=== PATIENT | female | born 1945 | race Caucasian/White ===

== ENCOUNTER 2021-02-14 10:00 | Inpatient (IN) | payer OTHER ==
[~2021-02-14] VITALS: Ht 147.3 cm; Wt 49.9 kg
[2021-02-14] MEDS ORDERED: ARIMIDEX PO (12:30)
[2021-02-14] MEDS ORDERED: BONIVA150 MG PO (12:30)
[2021-02-14] MEDS ORDERED: ZETIA10 MG PO (12:30)
[2021-02-14] MEDS ORDERED: VITAMIN B PO (12:31)
[2021-02-14] MEDS ORDERED: ENALAPRIL MALEA10 MG PO (12:31)
[2021-02-14] MEDS ORDERED: [UNRECOGNIZED DRUG - OTHER] PO (12:32)
[2021-02-21] MEDS ORDERED: ANASTROZOLE1 MG (09:05)
[2021-02-21] MEDS ORDERED: MAXIMUM D3325 MCG (09:05)
[2021-02-21] MEDS ORDERED: HYDROCHLOROTH12.5 MG (09:06)
[2021-02-21] MEDS ORDERED: SIMVASTATIN20 MG (09:06)
[2021-02-21] MEDS ORDERED: NAPROXEN500 MG (09:06)
[2021-02-21] MEDS ORDERED: B COMPLEX1 EACH (09:07)
[2021-02-21] MEDS ORDERED: AMOX-CLAV 875-1 EAC1 PO (14:09)
[2021-02-21] MEDS ORDERED: MEDROLPACK PO (14:09)
[2021-02-21] MEDS ORDERED: PERCOCET 5-3251 EACH PO (14:09)
[2021-02-21] MEDS ORDERED: NEURONTIN800 MG PO (14:09)
[2021-02-21] MEDS ORDERED: DIAZEPAM5 MG PO (14:09)
[2021-02-21] MEDS ORDERED: COLACE100 MG PO (14:09)
[2021-02-21] MEDS ORDERED: ZOFRAN8 MG PO (14:10)
== END 2021-02-22 13:26 | disposition home or self-care (01) | DRG 520 ==
LOC: SURH 02-20 10:00 → O/R 02-21 08:31 → SURH 02-21 10:00 → PED 02-21 14:47 → SURH 02-21 15:30 → PED 02-22 13:26
PROVIDERS: ADMIT Orthopaedic Surgery Orthopaedic Surgery of the Spine; ATTEND Orthopaedic Surgery Orthopaedic Surgery of the Spine
PROC: 0SB20ZZ Excision of Lumbar Vertebral Disc, Open Approach (ICD-10-PCS; principal; 2021-02-21 15:30)
DX: M48.062 Spinal stenosis, lumbar region with neurogenic claudication (principal); M54.16 Radiculopathy, lumbar region

== ENCOUNTER 2021-06-14 11:15 | Outpatient (CLI) | payer OTHER ==
[~2021-06-14 11:15] MED LIST: AMOX-CLAV 875-1 EAC1 PO; ANASTROZOLE1 MG; ARIMIDEX PO; B COMPLEX1 EACH; BONIVA150 MG PO; COLACE100 MG PO; DIAZEPAM5 MG PO; ENALAPRIL MALEA10 MG PO; HYDROCHLOROTH12.5 MG; MAXIMUM D3325 MCG; MEDROLPACK PO; NAPROXEN500 MG; NEURONTIN800 MG PO; PERCOCET 5-3251 EACH PO; SIMVASTATIN20 MG; VITAMIN B PO; ZETIA10 MG PO; ZOFRAN8 MG PO; [UNRECOGNIZED DRUG - OTHER] PO
== END 2021-06-14 11:33 | disposition home or self-care (01) ==
LOC: MRI 11:15
PROVIDERS: ATTEND Orthopaedic Surgery Orthopaedic Surgery of the Spine
DX: M50.00 Cervical disc disorder with myelopathy, unspecified cervical region (principal)
CPT/HCPCS: 72141

== ENCOUNTER 2021-10-29 16:28 | Emergency (ER) | payer OTHER ==
[~2021-10-29] VITALS: Ht 160 cm; Wt 68.0 kg
== END 2021-10-30 18:28 | disposition home or self-care (01) ==
LOC: ER 16:28
DX: L89.619 Pressure ulcer of right heel, unspecified stage (principal); L02.611 Cutaneous abscess of right foot; Z74.01 Bed confinement status; Z88.2 Allergy status to sulfonamides; Z88.8 Allergy status to other drugs, medicaments and biological substances; I10 Essential (primary) hypertension; G30.9 Alzheimer's disease, unspecified; F02.80 Dementia in other diseases classified elsewhere, unspecified severity, without behavioral disturbance, psychotic disturbance, mood disturbance, and anxiety; M48.062 Spinal stenosis, lumbar region with neurogenic claudication; C50.911 Malignant neoplasm of unspecified site of right female breast